=== PATIENT | female | born 1970 | race Caucasian/White ===

== ENCOUNTER 2025-01-15 07:19 | Day surgery (SDC) | payer BC, SELFPAY ==
[2025-01-13 17:17] VITALS: BMI 25.6
[2025-01-15 08:04] VITALS: BP 145/91; PULSE 94; RESP 18; TEMP 36.7; O2SAT 97
[2025-01-15] MEDS: LACTATED RINGERS 1000ML 1,000 ML 50 ML IV (08:19)
--- NOTE | 2025-01-15 08:42 | P.PNANES_ITS ---
[facility] Disclaimer: The information contained in this section may have been updated after the patient was seen, as this information can be updated by other users. Medical History History of deviated nasal septum History of ovarian cyst delivery delivered Hysterectomy planned Colonoscopy planned Surgical History History of repair of left rotator cuff Family History Other Colon cancer No significant family history Social History Smoking Status: Never smoker alcohol intake: never substance use type: denies use current occupational status: employed Travel in the last 8 weeks?: None caffeine: Yes [facility] Anesthesia Checklist Patient Identification Patient Identification: Arm Band Structural Data Admitted From: Home Planned Operative Procedure/s: Colonoscopy Consent for Planned Operative Procedure(s) Verified: Yes Verified Documents: Surgical Consent and History and Physical NPO Status Verified Time NPO: 04:30 (finished prep) Additional verifications Anesthesia Reactions: No Airway Assessment Mallampati Score:: Class II C-Spine Mobility Assessed: Yes TMJ Mobility Assessed: Yes Dentition: Good Dentition Neurological Assessment Level of Consciousness: Awake, Alert and Appropriate Anesthesia Plan Anesthesia Risk discussed: Yes Anesthesia Plan: Verified ASA Class: II Anesthesia Type: MAC
--- NOTE | 2025-01-15 08:58 | EXP.HP ---
History of Present Illness *Admission Date: 01/15/25 *Reason for visit:: Personal history of adenomatous colon polyps/family history of colon cancer *History of present illness: Mrs. Johnson is a 54-year-old female who is here for surveillance colonoscopy. Her last colonoscopy was 5 years ago. She does have a personal history of multiple adenomatous colon polyps and family history of colon cancer. The examination is deemed medically necessary for surveillance colonoscopy. The patient has been seen, interviewed and examined prior to the procedure by both myself and the anesthesia provider. [facility] Disclaimer: The information contained in this section may have been updated after the patient was seen, as this information can be updated by other users. Medical History (Updated 01/15/25 @ 09:07 by Good Palencia II, MD) History of deviated nasal septum History of ovarian cyst delivery delivered Hysterectomy planned Colonoscopy planned Surgical History History of repair of left rotator cuff Family History Other Colon cancer No significant family history Social History (Updated 01/15/25 @ 08:43 by Frank Cody CRNA) Smoking Status: Never smoker alcohol intake: never substance use type: denies use current occupational status: employed Travel in the last 8 weeks?: None caffeine: Yes Have you lived/traveled outside [place] in past 30 days?: No Contact w/someone who lives/traveled outside [place] past 30 days?: No Exposure to someone with infectious disease in past 14 days?: No Do you have a fever (greater than 100.4 F or 38 C)?: No Have you tested positive for COVID-19?: No Exposed to someone with COVID-19 in past 14 days?: No Do you have a sore throat?: No Do you have a cough?: No Do you have any weakness?: No Are you experiencing any nausea/vomitting?: No Do you have any diarrhea?: No Are you experiencing any unusual bleeding?: No Do you have any muscle aches/pain?: No Do you have any abdominal pain?: No Are you experiencing loss of taste or smell?: No Review of Systems Review of Systems Review of systems (narrative): Negative *Cardiovascular Comments: Negative *Gastrointestinal Comments: Negative *Genitourinary Comments: Negative *Musculoskeletal Comments: Negative *Neurologic Comments: Negative Meds Home Medications and Allergies Home Medications ?Medication ?Instructions ?Recorded ?Confirmed ?Type sodium sul 1.479 gram-potas ch See Rx Instructions PO PER PKG DIR 01/01/25 Rx 0.188 gram-magnes sul 0.225 gram colonscopy #24 tabs tablet (Sutab) amlodipine 5 mg tablet 5 mg PO DAILY 01/13/25 01/13/25 History aspirin 81 mg capsule 81 mg PO DAILY 01/13/25 01/13/25 History levocetirizine 5 mg tablet 5 mg PO DAILY 01/13/25 01/13/25 History montelukast 10 mg tablet 10 mg PO DAILY 01/13/25 01/13/25 History (Singulair) omeprazole 40 mg capsule,delayed 40 mg PO BID 01/13/25 01/13/25 History release vortioxetine 10 mg tablet 10 mg PO DAILY 01/13/25 01/15/25 History (Trintellix) New Prescriptions to Start Prescriptions: Allergies Allergy/AdvReac Type Severity Reaction Status Date / Time Penicillins Allergy Hives Verified 01/15/25 08:02 Exam Data for Last 24 hours Vital signs and Labs for Last 24 Hours: Temp Pulse Resp BP Pulse Ox O2 Del Method 98.1 F 94 H 18 145/91 H 97 Room Air 01/15/25 08:04 01/15/25 08:04 01/15/25 08:04 01/15/25 08:04 01/15/25 08:04 01/15/25 08:04 I & O for Last 24 hours: Intake & Output 01/12/25 01/13/25 01/14/25 01/15/25 23:59 23:59 23:59 23:59 Weight 154 lb *Routine HEENT Exam Head: Present normocephalic Eye: Present EOMI and PERRL ENT: Present mucous membranes moist *Routine Neck Exam Neck: Present supple *Routine Respiratory Exam Respiratory: Present CTA bilaterally *Routine Cardiovascular Exam Cardiovascular: Present RRR *Routine Abdominal Exam Abdominal: Present soft and normoactive bowel sounds; Absent tenderness *Routine Rectal Exam Rectal:: deferred *Routine Genitalia Exam Genitalia:: deferred *Routine Extremities Exam Extremities: Absent cyanosis, clubbing or edema *Routine Skin Exam Skin: Present warm; Absent rash *Routine Neurological Exam Neurological: Present alert and oriented X3 Assessment and Plan *Assessment and plan (1) Personal history of adenomatous and serrated colon polyps: Status: Acute Category: Medical Code(s): Z86.0101 - Personal history of adenomatous and serrated colon polyps (2) Family history of colon cancer: Status: Acute Category: Medical Code(s): Z80.0 - Family history of malignant neoplasm of digestive organs Plan A/P: 1. Personal history of adenomatous colon polyps and family history of colon cancer is the preprocedural diagnosis. The patient will be anesthetized/sedated using MAC sedation. The patient has been seen and examined. Cardiac and lung assessment prior to the examination is stable. Proceed with planned surveillance colonoscopy.
[2025-01-15 09:04] VITALS: O2SAT 100
--- NOTE | 2025-01-15 09:08 | HMH.PROCNOTE ---
[facility] Procedure Note Date: 01/15/25 Time: 09:23 Procedure Note:: Colonoscopy Procedure Report: Colonoscopy with cold snare polypectomy Endoscopist: Good Palencia II, MD Referring physician: Morris Resendiz Date of Procedure: January 15, 2025 Equipment: Olympus 190 variable stiffness pediatric colonoscope Sedation: MAC sedation Indication: Mrs. Johnson is a 54-year-old female who is here for 5-year surveillance colonoscopy. She does have a personal history of adenomatous colon polyps. This is her 5th or 6th colonoscopy. Her paternal grandmother had colon cancer and her father and paternal uncle had malignant colon polyps. She does take psyllium capsules. She reports no abdominal pain, weight loss, change in her bowel habits or rectal bleeding. She does have recurrent globus sensation and has had EGD with dilation twice in the last couple of years and her last EGD was last summer (Travon Tristan MD). Procedure: Prior to the procedure, a history and physical exam was performed, and patient's medications and allergies were reviewed. The risks, benefits and alternatives of the sedation and procedure were discussed with the patient. All questions were answered and informed consent was obtained. The patient was brought to the procedure room. Patient identification and proposed procedure were verified by the physician and the nurse. The patient was placed in a left lateral decubitus position and the scope was passed under direct vision. Throughout the procedure, the patient's blood pressure, pulse, and oxygen saturations were monitored continuously. The colonoscopy was accomplished without difficulty. The patient tolerated the procedure well. Findings: On digital rectal examination there was normal rectal tone. There were no external hemorrhoids. The colonoscope was introduced through the anal canal to the rectum and advanced to the cecum. The ileocecal valve and appendiceal orifice were identified. The scope was advanced a short distance into the ileum which appeared grossly normal. The scope was then withdrawn into the colon. The cecum, ascending and transverse colon and mucosa were grossly normal. There was a single 4 mm polyp in the descending colon removed via cold snare polypectomy. There were scattered diverticuli throughout the descending and sigmoid colon (LEFT colon). The rectum itself was normal. Upon retroflexion within the rectum there were grade 1-2 internal hemorrhoids. The preparation was excellent throughout with [place] Preparation Score of 9. The cecal time was 12 minutes. Impression: 1. Diminutive 4 mm descending colon polyp 2. Left-sided diverticulosis 3. Grade 1-2 internal hemorrhoids Plan: I will follow-up the polyp histology and recommend repeat surveillance colonoscopy again in 5 years. I would recommend continuation of psyllium fiber supplementation. We will discuss need for EGD because of her recurrent globus sensation as well as other treatment options.
[2025-01-15 09:27] VITALS: BP 114/73; PULSE 89; RESP 16; TEMP 36.3; O2SAT 94
[2025-01-15 09:37] VITALS: BP 133/79; PULSE 82; RESP 16; O2SAT 95
[2025-01-15 09:47] VITALS: BP 124/79; PULSE 79; RESP 16; O2SAT 95
[2025-01-15 09:57] VITALS: BP 118/69; PULSE 84; RESP 16; O2SAT 96
== END 2025-01-15 09:57 | disposition home or self-care (01) ==
PROVIDERS: PCP Internal Medicine; Visit Provider Internal Medicine Gastroenterology
PROC: 0DJD8ZZ Inspection of Lower Intestinal Tract, Via Natural or Artificial Opening Endoscopic (ICD-10-PCS; CPT 45378; principal; 2025-01-15 09:00)
DX: Z12.11 Encounter for screening for malignant neoplasm of colon (principal); Z86.0101 Personal history of adenomatous and serrated colon polyps; Z80.0 Family history of malignant neoplasm of digestive organs; K63.5 Polyp of colon; K57.30 Diverticulosis of large intestine without perforation or abscess without bleeding; K64.8 Other hemorrhoids
CPT/HCPCS: 45385; J2704; J7120